=== PATIENT | female | born 1985 | race American Indian/Alaskan Native ===

== ENCOUNTER 2019-06-07 14:34 | Emergency (ER) | payer BC ==
--- NOTE | 2019-06-07 15:58 | Emergency Department Report ---
ED ENT HPI - General Chief complaint: Dental/Oral Stated complaint: TOOTH ABSCESS Time Seen by Provider: 06/07/19 15:53 Source: patient Mode of arrival: Ambulatory Limitations: No Limitations - History of Present Illness Initial comments: pt is a 33 yo female who presents to the ED with c/o a dental abscess. states she noticed swelling to the right jaw that began 3 days ago. states she has dental pain on the right lower side. states she cracked a tooth on the right lower side a long time ago. last saw a dentist two weeks ago to have dental work on the left side. no fever, no chills, no n/v/d, no problems swallowing. no pmhx. no allergies to meds. LNMP: two weeks ago. - Related Data Previous Rx's Medication Instructions Recorded Last Taken Type Clindamycin [Clindamycin CAP] 450 mg PO TID 7 Days #63 capsule 06/07/19 Unknown Rx Ibuprofen [Motrin 600 MG tab] 600 mg PO Q8H PRN #14 tablet 06/07/19 Unknown Rx Penicillin Vk [Veetids TAB] 500 mg PO QID 7 Days #56 tablet 06/07/19 Unknown Rx Allergies Allergy/AdvReac Type Severity Reaction Status Date / Time No Known Allergies Allergy Unverified 06/07/19 14:39 ED Dental HPI - General Chief complaint: Dental/Oral Stated complaint: TOOTH ABSCESS Time Seen by Provider: 06/07/19 15:53 Source: patient Mode of arrival: Ambulatory Limitations: No Limitations - Related Data Previous Rx's Medication Instructions Recorded Last Taken Type Clindamycin [Clindamycin CAP] 450 mg PO TID 7 Days #63 capsule 06/07/19 Unknown Rx Ibuprofen [Motrin 600 MG tab] 600 mg PO Q8H PRN #14 tablet 06/07/19 Unknown Rx Penicillin Vk [Veetids TAB] 500 mg PO QID 7 Days #56 tablet 06/07/19 Unknown Rx Allergies Allergy/AdvReac Type Severity Reaction Status Date / Time No Known Allergies Allergy Unverified 06/07/19 14:39 ED Review of Systems ROS: Stated complaint: TOOTH ABSCESS Other details as noted in HPI Comment: All other systems reviewed and negative ED Past Medical Hx - Past Medical History Previous Medical History?: No - Surgical History Past Surgical History?: No - Medications Home Medications: Home Medications Medication Instructions Recorded Confirmed Last Taken Type Clindamycin [Clindamycin CAP] 450 mg PO TID 7 Days #63 capsule 06/07/19 Unknown Rx Ibuprofen [Motrin 600 MG tab] 600 mg PO Q8H PRN #14 tablet 06/07/19 Unknown Rx Penicillin Vk [Veetids TAB] 500 mg PO QID 7 Days #56 tablet 06/07/19 Unknown Rx ED Physical Exam - General Limitations: No Limitations General appearance: alert, in no apparent distress - Head Head exam: Present: atraumatic, normocephalic - Eye Eye exam: Present: normal appearance - ENT ENT exam: Present: normal orophraynx, mucous membranes moist, other (very poor dentition, several missing teeth and cracked teeth present, multiple dental caries, area of edema/induration present to the rigth lower jaw line inside the cheek, there is edema present to the right lower jaw, uvula is midline, no uvular deviation, no uvular edema) - Respiratory Respiratory exam: Present: normal lung sounds bilaterally. Absent: respiratory distress, wheezes, rales, rhonchi, stridor, chest wall tenderness, accessory muscle use, decreased breath sounds, prolonged expiratory - Cardiovascular Cardiovascular Exam: Present: regular rate, normal rhythm, normal heart sounds. Absent: systolic murmur, diastolic murmur, rubs, gallop - Neurological Exam Neurological exam: Present: alert, oriented X3 - Psychiatric Psychiatric exam: Present: normal affect, normal mood - Skin Skin exam: Present: warm, dry, intact ED Course Vital Signs 06/07/19 06/07/19 16:46 16:49 Temperature 98.9 F 98.9 F Pulse Rate 93 H 93 H Respiratory 18 20 Rate Blood Pressure 116/68 Blood Pressure 116/68 [Right] O2 Sat by Pulse 98 98 Oximetry ED Medical Decision Making - Medical Decision Making pt is a 33 yo female who presents to the ED with c/o a dental abscess. states sh e noticed swelling to the right jaw that began 3 days ago. states she has dental pain on the right lower side. states she cracked a tooth on the right lower side a long time ago. last saw a dentist two weeks ago to have dental work on the left side. no fever, no chills, no n/v/d, no problems swallowing. no pmhx. no allergies to meds. LNMP: two weeks ago. VSS. on exam: very poor dentition, several missing teeth and cracked teeth present, multiple dental caries, area of edema/induration present to the right lower jaw line inside the cheek, there is edema present to the right lower jaw, uvula is midline, no uvular deviation, no uvular edema. examination consistent with dental abscess. given prescription for clindamycin, penicillin vk, ibuprofen. advised to please take medication as prescribed. eat food while taking medication because can upset your stomach. follow up with a dentist. it is very important you follow up with a dentist once you have been started on antibiotics for a permanent solution. return to the emergency room for any new or worsening symptoms Critical care attestation.: If time is entered above; I have spent that time in minutes in the direct care of this critically ill patient, excluding procedure time. ED Disposition Clinical Impression: Dental abscess, Dental caries, Cracked tooth, Facial cellulitis Disposition: TO HOME OR SELFCARE Is pt being admited?: No Does the pt Need Aspirin: No Condition: Stable Instructions: Dental Abscess (ED) Additional Instructions: please take medication as prescribed. eat food while taking medication because can upset your stomach. follow up with a dentist. it is very important you follow up with a dentist once you have been started on antibiotics for a permanent solution. return to the emergency room for any new or worsening symptoms Prescriptions: Clindamycin [Clindamycin CAP] 450 mg PO TID 7 Days #63 capsule Ibuprofen [Motrin 600 MG tab] 600 mg PO Q8H PRN #14 tablet PRN Reason: Pain Penicillin Vk [Veetids TAB] 500 mg PO QID 7 Days #56 tablet Referrals: [facility] [Outside] - 3-5 Days [facility] [Outside] - 3-5 Days Time of Disposition: 16:00 Print Language: LAO
[2019-06-07 16:47] VITALS: BP 116/68
== END 2019-06-07 16:50 | disposition home or self-care (01) ==
LOC: ED 14:34
DX: K03.81 Cracked tooth (principal); K04.7 Periapical abscess without sinus; K02.9 Dental caries, unspecified; L03.211 Cellulitis of face; Z79.899 Other long term (current) drug therapy